=== PATIENT | female | born 1950 | race Caucasian/White ===

== ENCOUNTER 2017-10-23 07:00 | Day surgery (SDC) | payer MEDICARE, MEDICAID ==
[2017-10-20 11:46] VITALS: BMI 26.4
[~2017-10-23 07:00] MED LIST: FLU VACC TS2017-18 (>65YR) 0.5 ML SYRINGE IM ONE
[2017-10-23 07:45] VITALS: BP 160/71; TEMP 97.2
--- NOTE | 2017-10-23 08:37 | RAD ---
3 VIEWS CERVICAL SPINE: Date: 10/23/17 INDICATION: Cervical radiculopathy. COMPARISON: None. FINDINGS: No abnormal translational motion is evident. There is multilevel disc degenerative disease. No acute fracture is evident. IMPRESSION: No abnormal translational motion. POS: NIKOS
--- NOTE | 2017-10-23 08:56 | RAD ---
3 VIEWS LUMBAR SPINE: Date: 10/23/17 INDICATION: Lumbar radiculopathy. FINDINGS: There is posterior listhesis of L3 on L4. This mildly reduces with flexion and is slightly accentuate d with extension. There is advanced disc degenerative facet osteoarthritic change at L3-4. There is m ild multilevel disc degenerative change at the remaining lumbar intervertebral levels. Surgical clips are present within the upper abdomen. IMPRESSION: Mild retrolisthesis of L3 on L4 with slight reduction in flexion and slight accentuation with extensi on. POS: NIKOS
--- NOTE | 2017-10-23 09:31 | RAD ---
CERVICAL SPINE MYELOGRAM: LUMBAR SPINE MYELOGRAM: 10/23/2017 HISTORY: Pain and radiculopathy. COMPARISON: None. FINDINGS: [employer] frontal radiograph of the cervical spine demonstrates mid cervical spine facet and uncovertebra l osteophyte formation, as well as an incompletely imaged transvenous pacing device. Frontal imaging of the lumbar spine demonstrates right upper quadrant postoperative clips and a suture line within t he mid left abdomen. Multilevel degenerative change is noted with disk space narrowing and facet hyp ertrophy, including L3-L4, L4-L5, and L5-S1. Informed consent for myelogram obtained prior to the procedure. The patient was placed on the fluoroscopic table in the oblique prone position, and the skin overlyin g the lower lumbar spine was prepped and draped in the normal sterile fashion. The skin overlying the L2-L3 level was anesthetized with 1% buffered Lidocaine. With intermittent fl uoroscopic guidance, a 22 gauge spinal needle was advanced into the thecal sac, and removal of the st ylet yielded clear cerebrospinal fluid. Approximately 12 mL of Isovue-300 was injected, outlining th e nerve roots of the cauda equina and filling the thecal sac. the needle was removed. The patient's head was tilted down to extend some of the contrast media into the cervical region. The patient was then sent to the CT scanner for cervical spine and lumbar spine CT myelogram. IMPRESSION: Successful cervical spine and lumbar spine myelogram, as detailed above. POS: NIKOS
--- NOTE | 2017-10-23 10:52 | CT ---
CERVICAL SPINE CT MYELOGRAM: 10/23/2017 HISTORY: Cervical radiculopathy. TECHNIQUE: Serial axial CT imaging is obtained at 2.5 mm intervals, from the skull base through the upper thorac ic spine, following the administration of intrathecal contrast media. Coronal and sagittal reformatt ed imaging obtained. FINDINGS: The visualized lung apices are unremarkable. There is no anterolisthesis or retrolisthesis noted within the cervical spine. The prevertebral soft tissues are within normal limits. There is mild degenerative change at the atlantoaxial interspace and craniocervical junction. 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 C2-C3: No central canal or neural foraminal stenosis. C3-C4: Mild disk bulge with no central canal stenosis. Mild bilateral facet hypertrophy, left great er than right. No neural foraminal stenosis. C4-C5: Mild disk bulge with no central canal stenosis. Mild right facet hypertrophy. No central ca nal or neural foraminal stenosis. C5-C6: There is disk bulge partially effacing the ventral thecal sac and abutting the ventral aspect of the cord, with mild central canal stenosis. There is minimal right facet hypertrophy. No neural foraminal stenosis on either side. C6-C7: Mild disk bulge with no central canal stenosis. No neural foraminal stenosis. Mild anterior osteophyte formation. C7-T1: No central canal or neural foraminal stenosis. No acute osseous abnormality. IMPRESSION: Mild degenerative change with no significant central canal or neural foraminal stenosis within the ce rvical spine. POS: NIKOS
--- NOTE | 2017-10-23 11:45 | CT ---
CT MYELOGRAM LUMBAR SPINE: 10/23/2017 HISTORY: Lumbar radiculopathy. COMPARISON: None. TECHNIQUE: Serial axial CT imaging at 2.5 mm intervals, from the lower thoracic spine through the lower sacrum, with intrathecal contrast media. Coronal and sagittal reformatted imaging obtained. FINDINGS: Right upper quadrant post surgical clips are seen anterior to the IVC. There are punctate linear rizwan cifications in the upper pole of the right kidney, measuring up to 3-4 mm, which may signify nonobstr ucting renal stones and/or vascular calcification. There is atherosclerotic calcification of the inf rarenal abdominal aorta. There are moderate degenerative changes noted within the bilateral sacroiliac joints. There is no significant anterolisthesis or retrolisthesis seen on this examination. Please see flexi on/extension radiographs for full assessment. Five lumbar type vertebral bodies are present. The conus medullaris terminates at the T12-L1 level. T11-T12: There is a small disk osteophyte complex. There is mild bilateral facet hypertrophy. Ther e is no significant central canal or neural foraminal stenosis. T12-L1: Mild disk bulge and mild bilateral facet hypertrophy with no central canal or neural foramin al stenosis. L1-L2: Mild disk space narrowing. Mild bilateral facet hypertrophy. No significant central canal o r neural foraminal stenosis. L2-L3: Disk space narrowing and disk bulge present. Mild bilateral facet hypertrophy. No significa nt central canal or neural foraminal stenosis. L3-L4: Disk space narrowing, vacuum disk formation, and disk bulge present. There is a small left p aracentral disk herniation with mild inferior migration. Mild central canal stenosis/left lateral re cess stenosis. Bilateral facet hypertrophy present bilaterally, right greater than left. Mild bilat eral neural foraminal stenosis noted, right greater than left. L4-L5: There is prominent bilateral facet hypertrophy with prominent right-sided ligamentum flavum h ypertrophy. 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 There is moderate/severe left neural forami nal stenosis, mild to moderate right neural foraminal stenosis, and mild right lateral recess stenosi s. The patient appears status post left hemilaminectomy. L5-S1: Mild bilateral facet hypertrophy. No significant central canal or neural foraminal stenosis. No acute fracture or dislocation. No worrisome lytic or blastic bone lesion. IMPRESSION: Multilevel lower lumbar spine degenerative change, most prominent at L3-L4 and at L4-L5, as described above. POS: NIKOS
[2017-10-23] MEDS ORDERED: Iopamidol-M 300 61% 15 ML VIAL ONE (14:37)
== END 2017-10-23 09:35 | disposition home or self-care (01) ==
LOC: RAD 07:00
PROVIDERS: ATTEND Surgery
PROC: B00B1ZZ Plain Radiography of Spinal Cord using Low Osmolar Contrast (ICD-10-PCS; principal; 2017-10-23)
DX: M54.12 Radiculopathy, cervical region (principal); M54.16 Radiculopathy, lumbar region; Z88.0 Allergy status to penicillin; Z88.8 Allergy status to other drugs, medicaments and biological substances; Z88.7 Allergy status to serum and vaccine
CPT/HCPCS: 62305; 72040; 72100; 72126; 72132

== ENCOUNTER 2017-10-24 12:57 | Emergency (ER) | payer MEDICARE, MEDICAID ==
[2017-10-24 15:36] LABS: #Eosinphils 0.3 thou/uL (0.0-0.7); #Monocytes 0.7 thou/uL (0.11-0.59); #Neutrophils 6.4 thou/uL (1.40-6.50); %Basophils 0.1 % (0.0-1.0); %Eosinophils 3.4 % (0.0-10.0); %Lymphocytes 21.2 % (21.0-51.0); %Monocytes 7.3 % (0.0-10.0); %Neutrophils 67.9 % (42.0-75.0); Hemoglobin 14.1 g/dL (12.0-16.0); Mean Corpuscular HGB CONC 31.4 g/dL (32.0-36.0); Mean Corpuscular Hemoglobin 28.9 pg (27.0-31.0); Mean Corpuscular Volume 92.3 fl (81.0-99.0); Mean Platelet Volume 7.4 fL (7.4-10.4); Platelet Count 278 thou/uL (130-400); RBC Distribution Width 12.6 % (11.5-14.5); Red Blood Cell (RBC) Count 4.87 mill/uL (4.20-5.40); White Blood Cell (WBC) Count 9.4 thou/uL (4.8-10.8)
[2017-10-24 15:58] LABS: Anion Gap 10 mmol/L (10-20); BUN (Urea Nitrogen) 7 mg/dL (9.8-20.1); Calc. Creatinine Clearance 0 mL/min (70-130); Calcium 9.5 mg/dL (7.8-10.44); Carbon Dioxide 28 mmol/L (23-31); Chloride 107 mmol/L (98-107); Estimated GFR-MDRD 87; Glucose 106 mg/dL (80-115); Sodium 141 mmol/L (136-145)
[2017-10-24 16:57] LABS: Bilirubin Negative (Negative); Blood, Urine Negative (Negative); Clarity CLEAR (Clear); Glucose, Urine (Dipstick) Negative (Negative); Leukocyte Negative (Negative); Nitrite Negative (Negative); Protein, Urine (Dipstick) Negative (Neg-Trace); Specific Gravity, Urine 1.011 (1.002-1.036); Urobilinogen 0.2 mg/dL (0.2-1.0)
[2017-10-24] MEDS ORDERED: Ketorolac Tromethamine 30 MG/ML VIAL ONE ×2 (17:56)
[2017-10-24] MEDS ORDERED: Methocarbamol 500 MG TAB PO SCH (18:15)
== END 2017-10-24 19:49 | disposition home or self-care (01) ==
LOC: ERS 12:57
DX: M62.838 Other muscle spasm (principal); E11.9 Type 2 diabetes mellitus without complications; E03.9 Hypothyroidism, unspecified; Z79.899 Other long term (current) drug therapy
CPT/HCPCS: 36415; 80048; 81003; 85025; 96372; J1885

== ENCOUNTER 2018-05-16 12:47 | Outpatient (CLI) | payer MEDICARE, MEDICAID ==
[2018-05-16 14:06] LABS: Mean Corpuscular HGB CONC 32.2 g/dL (32.0-36.0); Mean Corpuscular Hemoglobin 28.9 pg (27.0-31.0); Mean Corpuscular Volume 89.5 fL (78.0-98.0); Mean Platelet Volume 8.5 fL (7.4-10.4); Platelet Count 199 thou/uL (130-400); RBC Distribution Width 12.8 % (11.5-14.5); Red Blood Cell (RBC) Count 4.84 mill/uL (4.20-5.40); White Blood Cell (WBC) Count 6.9 thou/uL (4.8-10.8)
[2018-05-16 14:10] LABS: PTT 27.5 SEC (22.9-36.1); Prothrombin Time 13.7 SEC (12.0-14.7)
[2018-05-16 14:43] LABS: Anion Gap 8 mmol/L (10-20); BUN (Urea Nitrogen) 7 mg/dL (9.8-20.1); Calc. Creatinine Clearance 0 mL/min (70-130); Calcium 9.2 mg/dL (7.8-10.44); Carbon Dioxide 25 mmol/L (23-31); Chloride 110 mmol/L (98-107); Estimated GFR-MDRD Greater than 90; Glucose 87 mg/dL (80-115); Potassium 3.5 mmol/L (3.5-5.1); Sodium 139 mmol/L (136-145)
--- NOTE | 2018-05-17 08:20 | EKG ---
Test Reason : Blood Pressure : / mmHG Vent. Rate : 123 BPM Atrial Rate : 123 BPM P-R Int : 000 ms QRS Dur : 156 ms QT Int : 292 ms P-R-T Axes : 000 008 -68 degrees QTc Int : 418 ms Poor data quality, interpretation may be adversely affected Marked Artifact. Atrial paced Rhythm. Left ventricular hypertrophy with QRS widening Recommend repeat tracing. Abnormal ECG No previous ECGs available Confirmed by FITO OHARA ([id number]) on 05/17/2018 8:20:35 AM Referred By: ROSELIA Confirmed By:FITO OHARA
== END 2018-05-16 12:48 | disposition home or self-care (01) ==
LOC: LABBT 12:47
PROVIDERS: ATTEND Surgery
DX: Z01.818 Encounter for other preprocedural examination (principal); M54.16 Radiculopathy, lumbar region; M48.061 Spinal stenosis, lumbar region without neurogenic claudication
CPT/HCPCS: 80048; 85027; 85610; 85730; 93005; 93010

== ENCOUNTER 2018-05-17 06:10 | Inpatient (IN) | payer MEDICARE, MEDICAID ==
[2018-05-16 09:21] VITALS: BMI 30.2
[2018-05-17] MEDS ORDERED: Clindamycin/D5W 900 mg/50 ml Premix Bag ONE (06:31)
[2018-05-17] MEDS ORDERED: Levofloxacin 500 mg/D5W 100 ml Premix Bag ONE (06:31)
[2018-05-17] MEDS ORDERED: Thrombin 5000 UNITS/5 ML VIAL ONE (06:33)
[2018-05-17] MEDS ORDERED: Bacitracin Zinc Ointment 30 gm TUBE ONE (06:33)
[2018-05-17] MEDS ORDERED: Sodium Chloride 0.9% 10 ML ONE (06:33)
[2018-05-17] MEDS ORDERED: Fentanyl 100 MCG/2 ML VIAL ONE (07:29)
[2018-05-17] MEDS ORDERED: Lidocaine 1% PF 5 ML VIAL ONE ×2 (08:34)
[2018-05-17] MEDS ORDERED: Metoclopramide HCl 10 MG/2 ML VIAL ONE (08:34)
[2018-05-17] MEDS ORDERED: PHENYLEPHRINE-NS 100 MCG/ML 10 ML SYRINGE ONE (08:34)
[2018-05-17] MEDS ORDERED: Ondansetron HCl/PF 4 MG/2 ML Vial ONE (08:34)
[2018-05-17] MEDS ORDERED: Glycopyrrolate 0.2 MG/ML 5 ML SYRINGE ONE (08:34)
[2018-05-17] MEDS ORDERED: PROPOFOL 200 MG/20 ML VIAL ONE (08:34)
[2018-05-17] MEDS ORDERED: Ketorolac Tromethamine 30 MG/ML VIAL ONE (08:34)
[2018-05-17] MEDS ORDERED: HYDROmorphone 2 MG/ML VIAL ONE (09:47)
[2018-05-17] MEDS ORDERED: Fleet Enema 133 ML BOT PR PRN (10:08)
[2018-05-17] MEDS ORDERED: Promethazine HCl 25 MG/ML VIAL IM PRN ×2 (10:08→10:14)
[2018-05-17] MEDS ORDERED: Acetaminophen/Codeine 30-300mg Tablet PO PRN (10:08)
[2018-05-17] MEDS ORDERED: traMADol HCl 50 MG TAB PO PRN (10:08)
[2018-05-17] MEDS ORDERED: Acetaminophen 325 MG TAB PO PRN (10:08)
[2018-05-17] MEDS ORDERED: tiZANidine HCl 4 MG TAB PO PRN (10:08)
[2018-05-17] MEDS ORDERED: Mag-Al 1200 mg/1200 mg/30 ML UDCUP PO PRN (10:08)
[2018-05-17] MEDS ORDERED: Milk Of Magnesia 30 ML UDCUP PO PRN (10:08)
[2018-05-17] MEDS ORDERED: Bisacodyl 10 MG SUPP PR PRN (10:08)
[2018-05-17] MEDS ORDERED: Morphine Sulfate 2 MG/ML SYRINGE SLOW IVP PRN (10:14)
[2018-05-17] MEDS ORDERED: PACU-Morphine 4MG/ML VIAL SLOW IVP PRN (10:14)
[2018-05-17] MEDS ORDERED: Promethazine HCl 25 MG/ML VIAL SLOW IVP PRN (10:14)
[2018-05-17] MEDS ORDERED: Meperidine HCl/PF 25 MG/ML VIAL SLOW IVP PRN (10:14)
[2018-05-17] MEDS ORDERED: HYDROmorphone 2 MG/ML VIAL SLOW IVP PRN (10:14)
[2018-05-17] MEDS ORDERED: Ondansetron HCl/PF 4 MG/2 ML Vial IVP PRN (10:14)
--- NOTE | 2018-05-17 10:47 | OP ---
SURGEON: Warren Yung M.D. SITE SURVEYOR: Mick Schwartz PA-C. PREPROCEDURE DIAGNOSES: Multilevel lumbar stenosis with low back and leg pain with history of L4-L5 surgery and L4 and L5 spondylolisthesis. POSTPROCEDURE DIAGNOSES: Multilevel lumbar stenosis with low back and leg pain with history of L4-L5 surgery and L4 and L5 spondylolisthesis. PROCEDURE: 1. L3-L4, L5-S1 laminectomy, partial facetectomy, foraminotomies. 2. Bilateral revision L4-L5 hemilaminotomies, foraminotomies for decompression of the L4, L5, common dural tube and the L4-L5 nerve roots. 3. In situ fusion with local bone autograft obtained from same incision and allograft L4-L5 to stabi lize spondylolisthesis. PROCEDURE: After informed consent was obtained from the patient, the patient was brought to OR 11. Proper patient pause and identification was carried out. He was placed in excellent general endotrac heal anesthesia and positioned prone on the OR table. All appropriate points were padded. We identi fied the L3, L4, L5, S1 dorsal spines and the prior wound. The prior wound was incorporated and this region was sterilely cleansed, prepared, and draped. Proper patient pause and identification was ca rried out. The wound was then opened with a combination of sharp, monopolar and blunt dissection. T he L3 dorsal spine's lamina and facet complexes were exposed but preserved at L3-L4. L4-L5 and L5-S1 revision work was necessary obviously at the L4-L5 segment given the patient's prior surgery eccentr ic to the left and the L4-L5 segment. Localization film confirmed our area of interest. We then per formed L3-L4 and L5-S1 laminectomies, partial facetectomies and then performed bilateral revision L4- L5 hemilaminotomies, foraminotomies for decompression of the L3, L4, L5, and S1 nerve roots bilateral ly in the common dural tube. Copious irrigation occurred throughout. There was no spinal fluid leak . Hemostasis was also maximized. Decortication over the posterolateral regions was then performed a t L4-L5 and an L4-L5 in situ fusion was then performed. Local bone autograft obtained from same inci elzbieta and allograft. The wound was copiously irrigated throughout and closed in anatomic layers after the sprinkling of vancomycin powder. The patient was then emerged from anesthesia.
[2018-05-17] MEDS ORDERED: HumaLOG 300 UNITS/3 ML VIAL SC PRN (13:55)
[2018-05-17] MEDS: HYDROcodone/Acetaminophen 7.5/325 mg Tablet PO PRN ×2 (14:58→22:15)
[2018-05-17] MEDS: Sodium Chloride 0.9% 1,000 ML IV SCH (15:51)
[2018-05-17] MEDS: Clindamycin/D5W 900 MG in Premix Bag 1 BAG IVPB SCH ×2 (15:51→22:29)
[2018-05-18] MEDS: Sodium Chloride 0.9% 1,000 ML IV SCH ×2 (05:39→10:12)
[2018-05-18] MEDS: HYDROcodone/Acetaminophen 7.5/325 mg Tablet PO PRN (05:51)
[2018-05-18] MEDS ORDERED: Levothyroxine Sodium 100 MCG TAB PO SCH (06:00)
[2018-05-18] MEDS ORDERED: Non-Formulary Item 1 EACH (Levothyroxine Sodium [Levothyroxine Sodium] 200 MCG) PO SCH (09:00)
--- NOTE | 2018-05-18 09:25 | PRG ---
DATE OF SERVICE: 05/18/2018 SUBJECTIVE: Ms. Hawley is postoperative day #1 from lumbar laminectomy and in situ fusion. She is do ing well with improvement in her leg pain. She has good strength. We went over intra and postoperat pushpa issues. We will plan for dismissal.
[2018-05-18 10:50] VITALS: BP 131/78; TEMP 98
[2018-05-19] MEDS ORDERED: Prevnar 13-Val Conj/PF 0.5 ML SYRINGE IM ONE (09:00)
== END 2018-05-18 10:50 | disposition home or self-care (01) | DRG 460 ==
LOC: SURG A 06:10 → SJJU 10:55
PROVIDERS: ADMIT Surgery; ATTEND Surgery
PROC: 0SG3071 Fusion of Lumbosacral Joint with Autologous Tissue Substitute, Posterior Approach, Posterior Column, Open Approach (ICD-10-PCS; principal; 2018-05-17)
PROC: 0SG0071 Fusion of Lumbar Vertebral Joint with Autologous Tissue Substitute, Posterior Approach, Posterior Column, Open Approach (ICD-10-PCS; 2018-05-17)
DX: M48.061 Spinal stenosis, lumbar region without neurogenic claudication (principal); M54.16 Radiculopathy, lumbar region; Z88.0 Allergy status to penicillin; Z88.8 Allergy status to other drugs, medicaments and biological substances; Z79.1 Long term (current) use of non-steroidal anti-inflammatories (NSAID); Z79.4 Long term (current) use of insulin; Z79.82 Long term (current) use of aspirin; Z79.891 Long term (current) use of opiate analgesic; Z79.899 Other long term (current) drug therapy
CPT/HCPCS: 36416; 76001; 80048; 85027; 85610; 85730; 93005; 99213; G0463; J0131; J1170; J1885; J1956; J2001; J2405; J2550; J2704; J2765; J3010; J3370; J3490